=== PATIENT | male | born 1990 | race Caucasian/White ===

== ENCOUNTER 2024-10-11 16:27 | Outpatient (REF) | payer SELFPAY ==
[2024-10-11 17:56] LABS: Estimated Average Glucose 91 mg/dL; Hemoglobin A1C 112.7539 umol/L; Hemoglobin A1c % 4.8 % (<6.0); Total Hemoglobin (HGBA1C) 3900.7825 umol/L
--- OUTSIDE RECORDS SUMMARY | 2024-10-11 18:44 | XMS_ITS | Data Portability ---
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 Assessment Encounter Date Assessment Date Assessment LastModified by Organization Details LastModified Time 10/07/2022 10/07/2022 This document denotes that a discussion and counseling has been done for the patient on the risk and benefits associated with lung cancer screenings: 1) Discussed the benefits of early detection of lung cancer and reducing mortality by 20% 2) Discussed the likelihood of false positive results that may require further testing, about 20 to 25% 3) Discussed the likelihood of false negatives, meaning the screening does not detect some cases of lung cancer, about 20% 4) Discussed the likelihood of over-diagnosis, where the LDCT may discover lung cancers that may have no caused harm, about 10 to 20% 5) Discussed the possibility of incidental findings when performing the LDCT including any abnormalities (either benign or otherwise) of the thyroid, heart, abdomen, and blood vessels 6) Discussed the risk of radiation exposure of an LDCT, which is equivocal to that of normal background radiation seen over 6 months of time on [place] 7) Discussed the important of adhering to annual LDCT lung cancer screenings 8) Discussed the importance of abstinence of smoking for people who are former smokers and the importance of smoking cessation for current smokers 9) Discussed the impact of comorbidities and ability or willingness to undergo diagnosis and treatment if something concerning is found [email or web address] Not available 10/07/2022 16:19:48 10/11/2024 10/11/2024 Patient presented for medication refill. Patient tolerating medication well at current dose without adverse effects. Refilled as below. Discussed plan with patient, who expressed understanding. Follow up as noted below. [email or web address] Not available 10/11/2024 16:05:02 Plan of Treatment Reminders Order Date Submit Date Provider Last Modified By Organization Details Last Modified Time Details Appointments FOLLOW UP 15 2024 04:00P RUSLAN MORIN Not available Not available Not available Lab testoster one, free + total, serum 2024 025 [facility], [address] [place] [address], [id number], 10/11/2024 16:18:41 vitamin D, 25-hydrox y, total, serum 2024 025 [facility], [address] [place] [address], [id number], 10/11/2024 16:18:41 vitamin B12 + folate, serum or blood 2024 025 [facility], [address] [place] [address], [id number], 10/11/2024 16:18:41 iron + TIBC + ferritin, serum 2024 025 [facility], [address] [place] [address], [id number], 10/11/2024 16:18:41 CMP, serum or plasma 2024 025 [facility], [address] [place] [address], [address], 10/11/2024 16:18:41 CBC w/ auto diff 2024 025 [facility], [address] [place] [address], [id number], 10/11/2024 16:18:41 hemoglobi n A1c, QN, blood 2024 025 [facility], [address] [place] [address], [address], 10/11/2024 16:18:41 TSH + free T4, serum 2024 025 [facility], [address] [place] [address], [place], [address], 10/11/2024 16:18:41 Referral None recorded. Procedures None recorded. Surgeries None recorded. Imaging MRI, hand, w/o contrast - hyperexte nsion traumaWor k Comp approval: Worker's Comp 1 Injury Date Cigna no auth: ref# [id number] 2023 024 [facility] ([facility]), [address] [place] [address], [id number], 09/22/2023 11:54:57 MRI, wrist, w/o contrast - Work Comp approval: Worker's Comp 1 Injury Date Cigna: Not required ref#[id number] 07am 2023 024 [facility] ([facility]), [address] [place] [address], [id number], 09/26/2023 08:07:11 XR, lumbosacr al spine, 2 or 3 view - recheck for routine fracture of L3 2022 023 [email or web address] Not available 12/06/2022 08:34:17 XR, lumbar spine, 2 view 2022 023 PETER Not available 11/05/2022 23:35:23 LDCT, chest, for lung cancer screening - lung cancer screening ; patient has a 15 year screening 2022 023 [email or web address] Not available 10/11/2022 08:45:46 Medication Orders trazodone 100 mg tablet 2022 023 [email or web address] [facility] #[id number], [address] [place], [address], 10/11/2024 15:57:19 sertralin e 50 mg tablet 2022 023 [email or web address] [facility] #[id number], [address] [place], [address], 06/20/2023 08:54:50 ondansetr on 8 mg disintegr ating tablet 2022 023 [id number], [address] [place] [address], [address], 11/22/2022 16:08:03 mirtazapi ne 7.5 mg tablet 2022 023 [id number], [address] [place] [address], [address], 11/22/2022 16:07:54 sertralin e 25 mg tablet 2022 023 [id number], [address] [place] [address], [address], 11/22/2022 16:07:58 Patient TargetsNo targets recorded. Patient InstructionsNo instructions recorded. Reason for Referral None Reported. Results Created Date Observation Date Name Description Value Unit Range Abnormal Flag Note LastModifiedBy Organization Detail LastModifiedTime 11/06/19 23 11/04/2022 XR, lumba r spine , 2 view No observ ation record ed. [email or web address] [facility] [address] [address], [place], [address], 11/06/2022 10:07:27 09/25/19 24 09/24/2023 MRI, hand, w/o contr ast No observ ation record ed. [email or web address] [facility] ([facility]) [address] [place], [address], 09/25/2023 18:35:56 09/25/19 24 09/24/2023 MRI, wrist , w/o contr ast No observ ation record ed. [email or web address] [facility] ([facility]) [address] [facility] [place], [address], 09/26/2023 11:09:02 09/26/19 24 09/24/2023 MRI, wrist , w/o contr ast No observ ation record ed. [email or web address] [facility] ([facility]) [address], [place], [address], 09/28/2023 21:24:13 Result Notes None recorded. Problems Name Problem SNOMED Code Status Onset Date Resolution Date Notes Provider Name and Address Organization Details Recorded Time Acute otitis media 6875466 Active 2022 RUSLAN BLUNT [address] [place] [address], [address], [facility] 3 14:01:28 Abdominal pain 46685617 Active 2022 RUSLAN BLUNT [address] [place] [address], [address], [facility] 3 14:02:02 Depressive disorder 15707517 Active 2022 RUSLAN BLUNT [address] [place] [address], [address], [facility] 3 16:07:15 Low back pain 046259490 Active 2022 RUSLAN BLUNT [address] [place] [address], [address], [facility] 3 11:42:05 Degenerati on of lumbar interverte bral disc 29795223 Active 2022 RUSLAN BLUNT [address] [place] [address], [address], [facility] 3 11:46:02 Nausea and vomiting 30802421 Active 2022 RUSLAN BLUNT [address] [place] [address], [address], [facility] 3 11:53:44 Insomnia 881033319 Active 2022 RUSLAN BLUNT [address] [place] [address], [address], [facility] 3 13:24:15 Compressio n fracture of lumbar spine 805788775 Active 2022 RUSLAN BLUNT [address] [place], [address], [facility] 3 16:15:17 Hyperexten alek injury of thumb 795054975 Active 2023 Dimitry Dillard, DO [address] [place] [address], [address], [facility] 4 14:52:44 Streptococ daylin sore throat 07755907 Active 2023 Dimitry Dillard DO [address] [place] [address], [address], [facility] 4 15:44:11 Fatigue 23911316 Active 2024 RUSLAN BLUNT [address] [place] [address], [address], [facility] 5 16:10:29 Problem Notes None recorded. Procedures Surgical History None recorded. Imaging Results Imaging Date Name Status LastModified by Organiz ation Details LastModified Time 11/04/2022 XR, lumbar spine, 2 view completed [email or web address], [address], 11/06/2022 10:07:27 09/24/2023 MRI, hand, w/o contrast completed [address] [facility] ([facility]) [address] [place] [address], [address], 09/25/2023 18:35:56 09/24/2023 MRI, wrist, w/o contrast completed [facility] ([facility]) [address] [facility], [place], [address], 09/26/2023 11:09:02 09/24/2023 MRI, wrist, w/o contrast completed [address] [facility] ([facility]) [address] [place] [address], [address], 09/28/2023 21:24:13 Procedure Notes None recorded. Medical Equipment None Reported. Allergies No known drug allergies Medications Name Sig Start Date Stop Date Status Note LastModified by Organization Details LastModified Time trazodone 50 mg tablet TAKE 1 TABLET BY MOUTH EVERY DAY FOR 30 DAYS 03/24 completed Not Available Not Available Not Available aspirin 325 mg tablet take 1 tablet by mouth daily 10/11 completed Not Available Not Available Not Available meloxicam 15 mg tablet take 1 tablet by mouth once daily 10/11 completed Not Available Not Available Not Available ondansetron HCl 4 mg tablet take 1 tablet by mouth every 8 hours if needed for nausea and vomiting 10/11 completed Not Available Not Available Not Available sertraline 100 mg tablet take 1 tablet by mouth once daily active Not Available Not Available No t Available acetaminoph en 500 mg tablet take 1 TO 2 tablets by mouth every 8 hours -NO MORE THAN 8 TABLET... (REFER TO PRESCRIPT ION NOTES). 10/11 completed Not Available Not Available Not Available ondansetron 8 mg disintegrat ing tablet PLACE 1 TABLET TWICE A DAY BY TRANSLING UAL ROUTE NEEDED FOR 14 DAYS. 11/22 completed Not Available Not Available Not Available amoxicillin 875 mg tablet Take 1 tablet every 12 hours by oral route for 10 days. 10/11 completed Not Available Not Available Not Available trazodone 100 mg tablet take 1 tablet by mouth once daily at bedtime for insomnia 10/11 completed Not Available Not Available Not Available sertraline 25 mg tablet TAKE 1 TABLET BY MOUTH EVERY DAY active Not Available Not Available No t Available zolpidem 5 mg tablet TAKE 1 TABLET BY MOUTH EVERY DAY FOR 14 DAYS 10/11 completed Not Available Not Available Not Available sertraline 50 mg tablet TAKE 1 TABLET BY MOUTH EVERY DAY 06/20 completed Not Available Not Available Not Available oxycodone 5 mg tablet TAKE 1 TABLET EVERY 6 HOURS NEEDED FOR 7 DAYS 10/11 completed Not Available Not Available Not Available mirtazapine 7.5 mg tablet TAKE 1 TABLET BY MOUTH EVERY DAY FOR 30 DAYS 11/22 completed Not Available Not Available Not Available aspirin 09/06 completed Not Available Not Available Not Available Aleve 09/06 completed Not Available Not Available Not Available Vitals Date Recorded Body height Heart rate Oxygen saturation Oxygen saturation in Arterial blood by Pulse oximetry Systolic blood pressure Diastolic blood pressure Provider Name and Address Organization Details Last Updated DateTime 3 184.15 cm 85 /min 97 % 97 % 110 mm[Hg] 68 mm[Hg] Leonorstan Felix [facility] 3 15:56:50 Date Recorded Body height Body mass index (BMI) Body weight Heart rate Oxygen saturation Oxygen saturation in Arterial blood by Pulse oximetry Systolic blood pressure Diastolic blood pressure Provider Name and Address Organization Details Last Updated DateTime 3 184.15 cm 23 kg/m2 98421.8 9 g 83 /min 99 % 99 % 130 mm[Hg] 70 mm[Hg] RUSLAN BLUNT [address] [place], [address], [facility] 3 11:30:13 Date Recorded Body height Body mass index (BMI) Body weight Heart rate Oxygen saturation Oxygen saturation in Arterial blood by Pulse oximetry Systolic blood pressure Diastolic blood pressure Provider Name and Address Organization Details Last Updated DateTime 3 184.15 cm 24.1 kg/m2 18333.6 3 g 74 /min 99 % 99 % 118 mm[Hg] 70 mm[Hg] RUSLAN BLUNT [address] [place], [address], [facility] 3 16:09:14 Date Recorded Body height Body mass index (BMI) Body weight Heart rate Oxygen saturation Oxygen saturation in Arterial blood by Pulse oximetry Systolic blood pressure Diastolic blood pressure Provider Name and Address Organization Details Last Updated DateTime 5 186.69 cm 25.5 kg/m2 23571.1 g 80 /min 100 % 100 % 120 mm[Hg] 78 mm[Hg] Renetta Villanueva [facility] 5 15:57:02 Social History Question Answer Notes LastModified by Organizat ion Details LastModified Time Tobacco Smoking Status Current Every Day Smoker Greta toscano [facility] 04/20/2018 15:23:39 What Was The Date Of Your Most Recent Tobacco Screening? 10/11/2024 [email or web address] Information not available 10/11/2024 How Much Tobacco Do You Smoke? 2 PPW [email or web address] Information not available 11/22/2022 How Many Years Have You Smoked Tobacco? 12 [email or web address] Information not available 04/20/2018 Do You Or Have You Ever Used Any Other Forms Of Tobacco Or Nicotine? No [email or web address] Information not available 11/22/2022 Sex: Unknown Functional Status None recorded. Mental Status None recorded. Family History Relationship Description Onset Age of this Age Resolved Age Notes LastModified by Organization Details LastModified Time Father Hypertensive disorder marcela Not available 2017 15:27:05 Maternal Uncle Parkinson's disease [email or web address] Not available 2022 16:03:52 Maternal Uncle Obesity [email or web address] Not available 8 15:28:27 Maternal Grandfather Parkinson's disease [email or web address] Not available 2022 16:03:52 Medical History Condition Response Coronary Artery Disease N Gout N Kidney Stones N Blood Diseases N Hyperthyroidism N Blood Transfusion N Breast Cancer N COPD N Depression Y Lung Disease N Hypothyroidism N Defects or Inherited Disease N Anesthesia Complications N Meniere's disease N Anxiety Disorder N Muscle, Joint, or Bone Problems N Obesity N Vision or Eye Problems Y Arthritis N Mental Disorder N Cancer N Varicosities N Stroke N Bladder or Kidney Problems N High Cholesterol Liver Disease N Headaches N Kidney Disease N Allergies/Hayfever N Heart Problems N Hospitalizations N Thyroid Problems N GI Problems N Eating Disorder N Anemia N Constipation N Mental Illness N Diabetes N Seizures/Epilepsy N Tuberculosis N Congestive Heart Failure (CHF) N Abuse/Domestic Violence N Diverticulitis N Asthma N Reflux/GERD N Hepatitis N Heart Disease N Pulmonary Embolism N Chronic Ear Infections N Hypertension N Chicken Pox N Autism Spectrum Disorder (ASD) N Thrombophilias N Past Encounters Encounter ID Performer Location Encounter Start Date Encounter Closed Date Diagnosis/Indication Diagnosis SNOMED-CT Code Diagnosis ICD10 Code Diagnosis Note [id number] Starla Genao NP, [facility] [address] [facility],[place] [address] 04/20/2018 15:18:42 04/21/2018 09:05:06 Adult health examination 050670831 Z00.00 Tobacco user 663075798 Z 72.0 Discussed quit date/plan [id number] Dimitry Dillard DO [facility] [address],[place] [address] 07/25/2020 10:05:13 07/25/2020 10:45:01 Viral gastroenteritis 139172240 A08.4 will have him start a 24 hr clear liq will also start a probiotic [id number] RUSLAN BLUNT [facility] [address],[place] [address] 09/06/2022 13:50:33 09/06/2022 16:37:58 Acute otitis media 5826595 H65.02 will set up on amox for ear infection Abdominal pain 86505748 R10.13 resolved prior to appt [id number] RUSLAN BLUNT [facility] [address],[place] [address] 10/07/2022 15:44:59 10/07/2022 16:41:13 Depressive disorder 11687598 F33.1 agreed to start on sertraline for a month Tobacco user 866510129 Z 72.0 will set up with lung cancer screening [id number] RUSLAN BLUNT [facility] [address],[place] [address] 11/04/2022 11:20:11 11/04/2022 17:06:50 Low back pain 411787464 M54.59 does have a h/x of herniated disc in his lower backagreed to XR of his lower and mid backthe pt has been using ice and aleveresti ng which has been helpful Degenerati on of lumbar intervertebral disc 25199362 M51.36 will need both XR and MRIstart with XR for insurance reasons Depressive disorder 3548 9007 F33.1 agreed to start on sertraline for a month Nausea and vomiting 1692 1999 R11.2 will set up with ondansetro n 8 mg as needed for nausea [id number] RUSLAN BLUNT [facility] [address],[place] [address] 11/22/2022 16:03:33 11/22/2022 16:31:17 Depressive disorder 57327719 F33.1 increased to sertraline 50 mg which seems to be working much better Insomnia 958288312 G47.0 9 agreed to increase of the trazodone to 100 mg (did okay with it) Degenerati on of lumbar intervertebral disc 24300883 M51.36 doing okay Compressio n fracture of lumbar spine 035508869 M48.56XD will set XR up with repeat XR as suggested for f/u in 2 to 4 weeks [id number] [facility] [address] [facility] [address],[place] [address] 09/19/2023 09:18:28 09/19/2023 15:51:01 Hyperextension injury of thumb 776466656 S69.80XA [id number] RUSLAN BLUNT [facility] [address] [facility] [facility] [place] [address] 10/11/2024 15:49:55 10/11/2024 16:20:28 Renewal of prescription 084457774 Z76.0 stable Insomnia 541540122 G47.0 9 stable Depressive disorder 3548 9007 F33.1 stablether apist wanted blood work Fatigue 43171681 R53.83 wanted lab work to check levels Health Concerns Section Related Observation LastModified by Organization Detai ls LastModified Time None Recorded Concern Status LastModified by Organization Details LastModified Time None Recorded Advance Directives Directive None Recorded Payers Encounter Date Sequence Insurance Name Policy Number Policy Maher Covered Member ID Maher Member ID Guarantor Name 10/07/2022 1 [facility] [id number] Shivam Ricci [id number] Shivam Ricci 11/04/2022 1 [facility] [id number] Shivam Ricci [id number] Shivam Banbony 11/22/2022 1 REPLACED BY [facility] [id number] Shivam Ricci [id number] Shivam Banbony 09/19/2023 [facility] Cristiano Shivam Ricci 10/11/2024 1 [facility] [id number] Shivam Ricci [id number] Shivam Ricci Notes Date Note Type Note Provider Name a nd Address Organization Details Recorded Time 10/07/2022 text/html c/o would like t o discuss anti-depressant the patient reports that he feels that he has been having the patient reports that he feels unmotivated, tired, sadthe patient has been more irritable, prone to angry outbursts the patient does have hobbies he enjoysthe patient finds these helpful the patient reports thatthe patient reports that he does make comments like wanting to drive a nail into the floor with my head no SI per patient, is not a danger to himself or others the patient is hesitant about therapy since he has been that beforethe patient reports that he 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-medicate )the patient also was using a lot BP is excellent patient reports that he is smoking about one pack of cigarettes for 3 daysstarted at 17 years old15 year smoking historyagreed to CT screening RUSLAN BLUNT [address] [place], [address], [facility] 10/07/2022 16:20:35 11/04/2022 text/html c/o fall the patient reports he feel down the stairs (one flight of stairs)was outsideinjured his back, has a black eye right eye, no vision changes, no EOMI pain the patient reports pain in the left, no bruising the patient reports that the pain is in his back isthe patient reports pain is worsened with twisting and bending, not palpable with touch to reproducible no LOC, did hit his head, no sensitivity toward light, no sensitivity phonophobiano flashes of light, no floaters the patient reports that he is having radiculopathy in the right legthe patient has h/x of lumbar herniation the patient reports that his sertraline worked a little bitnot working as well now agreed to f/u with [facility] for back will send referral after getting his MRI back will start mirtazapine for depression, appetite, and sleepwill move appt out a few weeks from friday RUSLAN BLUNT [address] [facility], [place], [address], [facility] 11/04/2022 12:05:26 11/22/2022 text/html f/u anxiety/depression anxiety: sertraline 50 mg is working far better for the patientthe patient reports that he feels better insomnia: stable; agreed to increase his trazadone to 100 mgwill monitor his symptoms compression fracture: talked about repeating XR just to make sure it is healing appropriately without compounding injury low back pain: stable, not bad today the patient is otherwise doing pretty okay todaytalked RUSLAN BLUNT [address] [place], [address], [facility] 11/22/2022 16:28:18 09/19/2023 text/html patient is evaluated via tele/video assessment per patient consentduring current pandemiche fractured his distal left fibula with a spiral fracturelast friday at work had accident and ended up breaking his leg (fibula)relates that also thinks his left wrist was bent backwards and relates that now his thumb to wrist is sore and numb with noted bruising xray was not broken but is still very painful Dimitry Dillard DO [address] [place], [address], [facility] 09/19/2023 14:57:59 10/11/2024 text/html medication check the patient is doing okaythe patient had his tibia/fibula corrected with mary and screws which are still intact, may have them removed in a year or so depending the patient's therapist recommended blood work to check his T levelhis GF is worried about his energy level, will recheck his levels r/o anemia, thyroid condition the patient is stable on the sertraline dosestill seeing his therapist regularly which has been going well RUSLAN BLUNT [address] [place], [address], [facility] 10/11/2024 16:18:45
--- OUTSIDE RECORDS SUMMARY | 2024-10-11 18:44 | XMS_ITS | Continuity of Care Document ---
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 Patient tolerating medication well at current dose without adverse effects. Refilled as below. Discussed plan with patient, who expressed understanding . Follow up as noted below. [email or web address] Not available 10/11/2024 16:05:02 Plan of Treatment Reminders Order Date Submit Date Provider Last Modified By Organization Details Last Modified Time Details Appointments FOLLOW UP 15 2024 04:00P RUSLAN MORIN Not available Not available Not available Lab testoster one, free + total, serum 2024 025 [facility], [address] [place] [address], [id number], 10/11/2024 16:18:41 vitamin D, 25-hydrox y, total, serum 2024 025 [facility], [facility], [place], [id number], 10/11/2024 16:18:41 vitamin B12 + folate, serum or blood 2024 025 [facility], [address] [place], [address], 10/11/2024 16:18:41 iron + TIBC + ferritin, serum 2024 025 [facility], [address] [place] [address], [id number], 10/11/2024 16:18:41 CMP, serum or plasma 2024 025 [facility], [address] [place] [address], [id number], 10/11/2024 16:18:41 CBC w/ auto diff 2024 025 [facility], [address] [place] [address], [id number], 10/11/2024 16:18:41 hemoglobi n A1c, QN, blood 2024 025 [facility], [address] [place] [address], [id number], 10/11/2024 16:18:41 TSH + free T4, serum 2024 025 [facility], [address] [place] [address], [id number], 10/11/2024 16:18:41 Referral None recorded. Procedures None recorded. Surgeries None recorded. Imaging None recorded. Medication Orders None recorded. Patient TargetsNo targets recorded. Patient InstructionsNo instructions recorded. Reason for Referral None Reported. Problems Name Problem SNOMED Code Status Onset Date Resolution Date Notes Provider Name and Address Organization Details Recorded Time Acute otitis media 5711709 Active 2022 RUSLAN BLUNT [address] [place], [address], [facility] 3 14:01:28 Abdominal pain 25734353 Active 2022 RUSLAN BLUNT [address] [place], [address], [facility] 3 14:02:02 Depressive disorder 64072993 Active 2022 RUSLAN BLUNT [address] [place] [address], [address], [facility] 3 16:07:15 Low back pain 277464154 Active 2022 RUSLAN BLUNT [address] [place] [address], [address], [facility] 3 11:42:05 Degenerati on of lumbar interverte bral disc 50511114 Active 2022 RUSLAN BLUNT [address] [place] [address], [address], [facility] 3 11:46:02 Nausea and vomiting 14901842 Active 2022 RUSLAN BLUNT [address] [place] [address], [address], [facility] 3 11:53:44 Insomnia 487009396 Active 2022 RUSLAN BLUNT [address] [place] [address], [address], [facility] 3 13:24:15 Compressio n fracture of lumbar spine 673565929 Active 2022 RUSLAN BLUNT [address] [place] [address], [address], [facility] 3 16:15:17 Hyperexten alek injury of thumb 312181158 Active 2023 Dimitry Dillard DO [address] [place] [address], [address], [facility] 4 14:52:44 Streptococ daylin sore throat 89377724 Active 2023 Dimitry Dillard DO [address] [place] [address], [address], [facility] 4 15:44:11 Fatigue 10348807 Active 2024 RUSLAN BLUNT [address] [place] [address], [address], [facility] 16:10:29 Problem Notes None recorded. Medical Equipment None Reported. [...] Not Available Vitals Date Recorded Body height Body mass index (BMI) Body weight Heart rate Oxygen saturation Oxygen saturation in Arterial blood by Pulse oximetry Systolic blood pressure Diastolic blood pressure Provider Name and Address Organization Details Last Updated DateTime 5 186.69 cm 25.5 kg/m2 98163.1 g 80 /min 100 % 100 % 120 mm[Hg] 78 mm[Hg] Ren[facility] Villan[facility] 15:57:02 Social History Question Answer Notes LastModified by Organizat ion Details LastModified Time Tobacco Smoking Status Current Every Day Smoker Greta Rievra dorcas [facility] 04/20/2018 15:23:39 What Was The Date Of Your Most Recent Tobacco Screening? 10/11/2024 [email or web address] Information not available 10/11/2024 How Much Tobacco Do You Smoke? 2 PPW [email or web address] Information not available 11/22/2022 How Many Years Have You Smoked Tobacco? 12 [email or web address] Information not available 04/20/2018 Do You Or Have You Ever Used Any Other Forms Of Tobacco Or Nicotine? No [email or web address] Information not available 11/22/2022 Sex: Unknown Functional Status None recorded. Mental Status None recorded. Family History Relationship Description Onset Age of this Age Resolved Age Notes LastModified by Organization Details LastModified Time Father Hypertensive disorder [email or web address] Not available 2017 15:27:05 Maternal Uncle Parkinson's disease [email or web address] Not available 2022 16:03:52 Maternal Uncle Obesity [email or web address] Not available 15:28:27 Maternal Grandfather Parkinson's disease [email or web address] Not available 2022 16:03:52 Medical History Condition Response Coronary Artery Disease N Gout N Kidney Stones N Blood Diseases N Hyperthyroidism N Blood Transfusion N COPD N Depression Y Anxiety Disorder N Muscle, Joint, or Bone Problems N Obesity N Vision or Eye Problems Y Arthritis N Mental Disorder N Cancer N Stroke N Varicosities N Headaches N Kidney Disease N Heart Problems N Hospitalizations N Eating Disorder N Constipation N Tuberculosis N Asthma N Hepatitis N Pulmonary Embolism N Chronic Ear Infections N Chicken Pox N Autism Spectrum Disorder (ASD) N Thrombophilias N Breast Cancer N Hypothyroidism N Lung Disease N Defects or Inherited Disease N Anesthesia Complications N Meniere's disease N Bladder or Kidney Problems N High Cholesterol Liver Disease N Allergies/Hayfever N Thyroid Problems N GI Problems N Anemia N Mental Illness N Diabetes N Seizures/Epilepsy N Congestive Heart Failure (CHF) N Diverticulitis N Abuse/Domestic Violence N Reflux/GERD N Heart Disease N Hypertension N Past Encounters Encounter ID Performer Location Encounter Start Date Encounter Closed Date Diagnosis/Indication Diagnosis SNOMED-CT Code Diagnosis ICD10 Code Diagnosis Note [id number] [facility] [address] [facility] [place] [address] 10/11/2024 15:49:55 10/11/2024 16:20:28 Renewal of prescription 236025098 Z76.0 stable Insomnia 689166012 G47.0 9 stable Depressive disorder 3548 9007 F33.1 stablether apist wanted blood work Fatigue 46685532 R53.83 wanted lab work to check levels Health Concerns Section Related Observation LastModified by Organization Detai ls LastModified Time None Recorded Concern Status LastModified by Organization Details LastModified Time None Recorded Payers Encounter Date Sequence Insurance Name Policy Number Policy Maher Covered Member ID Maher Member ID Guarantor Name 10/11/2024 1 [facility] [id number] Shivam M Radhames [id number] Shivam Ricci Notes Date Note Type Note Provider Name a nd Address Organization Details Recorded Time 10/11/2024 text/html medication check the patient is [...] has been going well RUSLAN BLUNT [address] [place], [address], [facility] 10/11/2024 16:18:45
[2024-10-11 19:17] LABS: Anion Gap 11 (12-20)
[2024-10-11 19:24] LABS: Vitamin B12 753 pg/mL (200-900)
[2024-10-11 19:29] LABS: Alanine Aminotransferase 20 U/L (0-40); Albumin Level 4.8 g/dL (3.5-5.0); Alkaline Phosphatase 68 U/L (39-117); Aspartate Amino Transferase 24 U/L (5-37); Bilirubin Total 0.6 mg/dL (0.0-1.0); Blood Urea Nitrogen 14 mg/dL (9-16); Calcium 9.6 mg/dL (8.4-10.2); Carbon Dioxide 25 mmol/L (22-29); Chloride 109 mmol/L (96-108); Estimated Glomerular Filt Rate > 60; Ferritin 125 ng/mL (20-250); Glucose Random 86 mg/dL (60-115); Iron 68 mcg/dL (45-160); Percent Iron Saturation 23 % (15-50); Potassium 3.8 mmol/L (3.3-5.1); Sodium 141 mmol/L (135-145); Total Iron Binding Capacity 291 mcg/dL (228-428); Total Protein 7.9 g/dL (6.5-8.0); Unsaturated Iron Binding 223 ug/dL
[2024-10-11 20:00] LABS: T4 Thyroxine 7.7 ug/dL (4.5-12.0)
[2024-10-16 08:34] LABS: VITAMIN D (1,25 OH) D3 60 pg/mL; Vit D (1,25-Dihydroxy) Total 60 pg/mL (18-72); Vitamin D (1,25 OH) D2 <8 pg/mL
[2024-10-18 11:08] LABS: Testosterone, Free 93.1 pg/mL (35.0-155.0); Testosterone, Total 526 ng/dL (250-1100)
== END 2024-10-11 16:28 | disposition home or self-care (01) ==
LOC: HO.MANLDS 16:27
PROVIDERS: Visit Provider Physician Assistant
DX: Z13.1 Encounter for screening for diabetes mellitus (principal); R53.83 Other fatigue
CPT/HCPCS: 36415; 80053; 82607; 82652; 82728; 83036; 83540; 84402; 84403; 84436; 84443